=== PATIENT | male | born 1980 | race Caucasian/White ===

== ENCOUNTER 2022-09-30 17:57 | Emergency (ER) | payer MEDICAID ==
[~2022-09-30] VITALS: Ht 180.3 cm; Wt 102.1 kg
--- NOTE | 2022-09-30 18:08 | NUR ---
PT CAME INTO ER C/O LEFT ANKLE PAIN 02/02. S/P "TWISTING IT WHILE WALKING". DENIES LOC, DENIES HITTING HEAD. LIMITED ROM, CMS GOOD. SWELLING NOTED ON AFFECTED AREA. PT ASSISTED TO BED, AAOX4, VSS. AWAITING MD ORDERS.
--- NOTE | 2022-09-30 18:13 | NUR ---
DR. PHAN AT BEDSIDE.
[2022-09-30] MEDS ORDERED: IBUPROFEN 400 MG TABLET PO ONE (18:30)
[2022-09-30] MEDS ORDERED: IBUPROFEN 400 MG TABLET ONE (18:32)
--- NOTE | 2022-09-30 19:01 | NUR ---
PT RESTING IN BED. AAOX4. VSS.
--- NOTE | 2022-09-30 19:30 | NUR ---
EMT AT BEDSIDE. ABEBA WRAP ON LEFT ANKLE ADMINISTERED.
[2022-09-30] MEDS ORDERED: IBUP800T54 PO (19:36)
[2022-09-30 19:38] VITALS: BP 124/79
--- NOTE | 2022-09-30 19:38 | NUR ---
pt ok to discharge per dr avila. Patient discharged to home in stable condition. Written and verbal after care instructions given. Patient verbalizes understanding of instruction.Patient is awake and alert to self, day, and place. pt ambulatory with a steady gait
== END 2022-09-30 19:39 | disposition home or self-care (01) ==
LOC: ER 18:10
DX: M25.572 Pain in left ankle and joints of left foot (principal)
CPT/HCPCS: 73610-TC; 73630-TC